=== PATIENT | male | born 1985 | race Caucasian/White ===

== ENCOUNTER 2018-12-19 12:25 | Inpatient (IN) | payer OTHER ==
[~2018-12-19] VITALS: Ht 170.2 cm; Wt 65.9 kg
[2018-12-19] MEDS ORDERED: IBUPROFEN 600 MG TABLET PO ONE (13:15)
[2018-12-19] MEDS: PERTUSS(ACELL),DIPH,TET VAC/PF 0.5 ML VIAL IM ONE ×2 (14:10→14:12)
[2018-12-19 14:57] LABS: APPEARANCE,URINE CLEAR (CLEAR); BILIRUBIN,URINE NEGATIVE (NEGATIVE); GLUCOSE, URINE (UA) NEGATIVE (NEGATIVE); KETONES,URINE NEGATIVE (NEGATIVE); LEUKOCYTE ESTERASE ,URINE NEGATIVE (NEGATIVE); NITRATE,URINE NEGATIVE (NEGATIVE); OCCULT BLOOD,URINE NEGATIVE (NEGATIVE); PROTEIN,URINE TRACE (NEGATIVE)
[2018-12-19 15:00] VITALS: BP 104/64
[2018-12-19 15:03] LABS: AMPHET/METH SCREEN,URINE NEGATIVE (NEGATIVE); BARBITURATE SCREEN, URINE NEGATIVE (NEGATIVE); BENZODIAZEPINES SCREEN,URINE NEGATIVE (NEGATIVE); CANNABINOID SCREEN,URINE NEGATIVE (NEGATIVE); COCAINE SCREEN,URINE NEGATIVE (NEGATIVE); METHADONE SCREEN, URINE NEGATIVE (NEGATIVE); OPIATE SCREEN,URINE NEGATIVE (NEGATIVE)
[2018-12-19 15:06] LABS: PHENCYCLIDINE SCREEN,URINE NEGATIVE (NEGATIVE)
[2018-12-19 20:10] VITALS: BP 106/70
[2018-12-19 23:30] VITALS: BP 110/72
[2018-12-20] MEDS ORDERED: 0.9% SODIUM CHLORIDE 10 ML SYRINGE IVP PRN (03:30)
[2018-12-20] MEDS ORDERED: OxyCODONE HCL/ACETAMINOPHEN 5-325 MG TABLET PO PRN ×2 (03:30)
[2018-12-20] MEDS ORDERED: ONDANSETRON HCL 4 MG/2 ML VIAL IVP PRN (03:30)
[2018-12-20 04:00] VITALS: BP 102/63
[2018-12-20 07:20] VITALS: BP 117/64
[2018-12-20] MEDS: DOCUSATE SODIUM 100 MG CAPSULE PO SCH ×2 (08:21→20:54)
[2018-12-20 11:41] VITALS: BP 104/65
[2018-12-20 15:58] VITALS: BP 114/75
[2018-12-20 20:20] VITALS: BP 123/70
[2018-12-20 23:16] VITALS: BP 93/57
[2018-12-21 04:00] VITALS: BP 114/74
[2018-12-21 07:35] VITALS: BP_SYST 111; BP_SYST 130; BP_DIAS 75; BP_DIAS 86
[2018-12-21] MEDS: DOCUSATE SODIUM 100 MG CAPSULE PO SCH (08:44)
[2018-12-21 11:02] VITALS: BP 112/73
[2018-12-21] MEDS ORDERED: ZOLPIDEM TARTRATE 5 MG TABLET PO PRN (12:00)
== END 2018-12-21 14:10 | DRG 558 ==
LOC: EMS 12:26 → 6S 13:51 → EMS 14:34
PROVIDERS: ADMIT Hospitalist; ATTEND Hospitalist
DX: M72.2 Plantar fascial fibromatosis (principal); F20.9 Schizophrenia, unspecified; G47.00 Insomnia, unspecified; R41.83 Borderline intellectual functioning
CPT/HCPCS: 90715; 97116; 97161; 97530

== ENCOUNTER 2018-12-28 18:44 | Inpatient (IN) | payer OTHER ==
[~2018-12-28] VITALS: Ht 170.2 cm; Wt 52.4 kg
[2018-12-28 20:00] VITALS: BP 124/75
[2018-12-28 20:04] LABS: AMPHET/METH SCREEN,URINE NEGATIVE (NEGATIVE); BARBITURATE SCREEN, URINE NEGATIVE (NEGATIVE); BENZODIAZEPINES SCREEN,URINE NEGATIVE (NEGATIVE); CANNABINOID SCREEN,URINE NEGATIVE (NEGATIVE); COCAINE SCREEN,URINE NEGATIVE (NEGATIVE); METHADONE SCREEN, URINE NEGATIVE (NEGATIVE); OPIATE SCREEN,URINE NEGATIVE (NEGATIVE)
[2018-12-28 20:05] LABS: PHENCYCLIDINE SCREEN,URINE NEGATIVE (NEGATIVE)
[2018-12-28] MEDS ORDERED: BISACODYL 10 MG RECTAL RECTAL SUPPOSITORY PR PRN (21:00)
[2018-12-28] MEDS ORDERED: ONDANSETRON HCL 4 MG/2 ML VIAL IVP PRN (21:00)
[2018-12-28] MEDS ORDERED: ACETAMINOPHEN 325 MG TABLET PO PRN (21:00)
[2018-12-28] MEDS ORDERED: IPRATROPIUM BROMIDE 0.5 MG/2.5 ML NEB SOLUTION NEB PRN (21:00)
[2018-12-28] MEDS ORDERED: ALBUTEROL SULFATE 2.5 MG/0.5 ML NEB SOLUTION NEB PRN (21:00)
[2018-12-28] MEDS ORDERED: ZOLPIDEM TARTRATE 5 MG TABLET PO PRN (21:00)
[2018-12-28] MEDS ORDERED: MAGNESIUM HYDROXIDE SUSPENSION 30 ML UDCUP PO PRN (21:00)
[2018-12-28] MEDS: DOCUSATE SODIUM 100 MG CAPSULE PO SCH (21:29)
[2018-12-29] MEDS: HEPARIN SODIUM,PORCINE 5,000 UNITS/ML VIAL SQ SCH ×4 (00:11→16:00)
[2018-12-29 00:18] VITALS: BP 108/69
[2018-12-29 04:52] VITALS: BP 111/50
[2018-12-29 07:25] VITALS: BP 115/70
[2018-12-29] MEDS: DOCUSATE SODIUM 100 MG CAPSULE PO SCH ×2 (08:24→20:46)
[2018-12-29 11:15] VITALS: BP 131/88
[2018-12-29 15:50] VITALS: BP 110/66
[2018-12-29 20:30] VITALS: BP 98/64
[2018-12-30] VITALS (7 sets, daily range): BP systolic 103–130; BP diastolic 55–82
[2018-12-30] MEDS: HEPARIN SODIUM,PORCINE 5,000 UNITS/ML VIAL SQ SCH ×3 (08:00→16:00)
[2018-12-30] MEDS: DOCUSATE SODIUM 100 MG CAPSULE PO SCH ×2 (08:30→20:01)
[2018-12-30] MEDS: SERTRALINE HCL 50 MG TABLET PO SCH (13:52)
[2018-12-30] MEDS: RisperiDONE 1 MG TABLET PO SCH (20:02)
[2018-12-31] MEDS: SERTRALINE HCL 50 MG TABLET PO SCH (07:58)
[2018-12-31] MEDS: DOCUSATE SODIUM 100 MG CAPSULE PO SCH ×2 (07:58→21:00)
[2018-12-31] MEDS: HEPARIN SODIUM,PORCINE 5,000 UNITS/ML VIAL SQ SCH ×4 (07:58→15:06)
[2018-12-31 08:08] VITALS: BP 107/73
[2018-12-31 11:30] VITALS: BP 110/70
[2018-12-31 15:49] VITALS: BP 121/75
[2018-12-31 20:00] VITALS: BP 106/69
[2018-12-31] MEDS: RisperiDONE 1 MG TABLET PO SCH (20:42)
[2019-01-01] VITALS (7 sets, daily range): BP systolic 105–124; BP diastolic 67–93
[2019-01-01] MEDS: HEPARIN SODIUM,PORCINE 5,000 UNITS/ML VIAL SQ SCH ×3 (08:00→15:19)
[2019-01-01] MEDS: SERTRALINE HCL 50 MG TABLET PO SCH (08:09)
[2019-01-01] MEDS: DOCUSATE SODIUM 100 MG CAPSULE PO SCH ×2 (08:09→19:57)
[2019-01-01] MEDS: RisperiDONE 1 MG TABLET PO SCH (19:57)
[2019-01-02 05:00] VITALS: BP 114/72
[2019-01-02 07:36] VITALS: BP 112/80
[2019-01-02] MEDS: HEPARIN SODIUM,PORCINE 5,000 UNITS/ML VIAL SQ SCH ×3 (08:00→16:00)
[2019-01-02] MEDS: DOCUSATE SODIUM 100 MG CAPSULE PO SCH ×2 (08:43→19:55)
[2019-01-02] MEDS: SERTRALINE HCL 50 MG TABLET PO SCH (08:43)
[2019-01-02 11:44] VITALS: BP 103/56
[2019-01-02 15:40] VITALS: BP 129/73
[2019-01-02] MEDS: RisperiDONE 1 MG TABLET PO SCH (19:57)
[2019-01-02 20:24] VITALS: BP 117/73
[2019-01-03] VITALS: BP 114/71
[2019-01-03 07:35] VITALS: BP 121/77
[2019-01-03] MEDS: HEPARIN SODIUM,PORCINE 5,000 UNITS/ML VIAL SQ SCH ×3 (08:00→16:00)
[2019-01-03] MEDS: DOCUSATE SODIUM 100 MG CAPSULE PO SCH ×2 (08:29→20:45)
[2019-01-03] MEDS: SERTRALINE HCL 50 MG TABLET PO SCH (08:29)
[2019-01-03 11:27] VITALS: BP 106/77
[2019-01-03 15:59] VITALS: BP 120/85
[2019-01-03 19:30] VITALS: BP 118/78
[2019-01-03] MEDS: RisperiDONE 1 MG TABLET PO SCH (20:45)
[2019-01-03 23:15] VITALS: BP 112/80
[2019-01-04 04:30] VITALS: BP 115/74
[2019-01-04 07:01] VITALS: BP 101/66
[2019-01-04] MEDS: HEPARIN SODIUM,PORCINE 5,000 UNITS/ML VIAL SQ SCH ×3 (08:00→15:07)
[2019-01-04] MEDS: DOCUSATE SODIUM 100 MG CAPSULE PO SCH (08:30)
[2019-01-04] MEDS: SERTRALINE HCL 50 MG TABLET PO SCH (08:30)
[2019-01-04] MEDS ORDERED: RISP1 PO (11:02)
[2019-01-04] MEDS ORDERED: SERT50TA12 PO (11:03)
[2019-01-04 11:08] VITALS: BP 107/62
[2019-01-04 15:08] VITALS: BP 102/66
== END 2019-01-04 17:04 | DRG 885 ==
LOC: EMS 18:46 → 6S 18:56
PROVIDERS: ADMIT Hospitalist; ATTEND Hospitalist
DX: F20.9 Schizophrenia, unspecified (principal); F41.9 Anxiety disorder, unspecified; R11.2 Nausea with vomiting, unspecified; Z79.899 Other long term (current) drug therapy
CPT/HCPCS: 87081; J1644

== ENCOUNTER 2019-01-11 12:43 | Inpatient (IN) | payer OTHER ==
[~2019-01-11] VITALS: Ht 170.2 cm; Wt 63.6 kg
[~2019-01-11 12:43] MED LIST: RISP1 PO; SERT50TA12 PO
[2019-01-11] MEDS ORDERED: ACETAMINOPHEN 325 MG TABLET PO PRN ×2 (13:00→14:15)
[2019-01-11] MEDS ORDERED: 0.9% SODIUM CHLORIDE 10 ML SYRINGE IVP PRN (13:00)
[2019-01-11] MEDS ORDERED: ONDANSETRON HCL 4 MG/2 ML VIAL IVP PRN (13:00)
[2019-01-11] MEDS ORDERED: NICOTINE 14 MG/24 HOUR PATCH TD PRN (14:15)
[2019-01-11] MEDS ORDERED: MAG HYDROX/AL HYDROX/SIMETH ES 30 ML SUSPENSION UDCUP PO PRN (14:15)
[2019-01-11] MEDS ORDERED: DOCUSATE SODIUM 100 MG CAPSULE PO PRN (14:15)
[2019-01-11] MEDS ORDERED: LOPERAMIDE HCL 2 MG CAPSULE PO PRN (14:15)
[2019-01-11] MEDS ORDERED: ONDANSETRON HCL 4 MG TABLET PO PRN (14:15)
[2019-01-11] MEDS ORDERED: IBUPROFEN 400 MG TABLET PO PRN (14:15)
[2019-01-11] MEDS ORDERED: MAGNESIUM HYDROXIDE SUSPENSION 30 ML UDCUP PO PRN (14:15)
[2019-01-11] MEDS ORDERED: PETROLATUM,WHITE 28 GM JELLY TP PRN (14:15)
[2019-01-11] MEDS ORDERED: ALBUTEROL SULFATE HFA 90 MCG/PUFF 8 GM INHALER IH PRN (14:15)
[2019-01-11] MEDS ORDERED: GuaiFENesin/D-METHORPHAN [SUGAR-FREE] 200-20MG/10 ML SYRUP UDCUP PO PRN (14:15)
[2019-01-11] MEDS ORDERED: CloNIDine HCL 0.1 MG TABLET PO PRN (14:15)
[2019-01-11 14:40] VITALS: BP 116/80
[2019-01-11 19:38] VITALS: BP 110/67
[2019-01-12] VITALS (7 sets, daily range): BP systolic 107–128; BP diastolic 63–82
[2019-01-12] MEDS: SERTRALINE HCL 50 MG TABLET PO SCH (15:02)
[2019-01-12] MEDS: RisperiDONE 2 MG TABLET PO SCH ×2 (15:02→20:22)
[2019-01-13 04:28] VITALS: BP 101/65
[2019-01-13 07:35] VITALS: BP 106/66
[2019-01-13] MEDS: SERTRALINE HCL 50 MG TABLET PO SCH (08:04)
[2019-01-13] MEDS: RisperiDONE 2 MG TABLET PO SCH ×2 (08:04→20:16)
[2019-01-13 11:33] VITALS: BP 105/69
[2019-01-13 15:24] VITALS: BP 105/75
[2019-01-13 20:14] VITALS: BP 119/69
[2019-01-14 00:15] VITALS: BP 133/85
[2019-01-14 04:18] VITALS: BP 117/85
[2019-01-14 07:54] VITALS: BP 124/77
[2019-01-14] MEDS: RisperiDONE 2 MG TABLET PO SCH ×2 (08:18→20:07)
[2019-01-14] MEDS: SERTRALINE HCL 50 MG TABLET PO SCH (08:19)
[2019-01-14 11:33] VITALS: BP 110/65
[2019-01-14 15:30] VITALS: BP 120/76
[2019-01-14] MEDS: MIRTAZAPINE 15 MG TABLET PO SCH (20:07)
[2019-01-15] VITALS (7 sets, daily range): BP systolic 105–139; BP diastolic 68–78
[2019-01-15] MEDS: RisperiDONE 2 MG TABLET PO SCH ×2 (08:14→20:06)
[2019-01-15] MEDS: MIRTAZAPINE 15 MG TABLET PO SCH (20:06)
[2019-01-16 04:00] VITALS: BP 102/61
[2019-01-16 07:59] VITALS: BP 115/71
[2019-01-16] MEDS: RisperiDONE 2 MG TABLET PO SCH (08:55)
[2019-01-16 11:51] VITALS: BP 114/67
[2019-01-16] MEDS ORDERED: MIRT15 PO (16:24)
== END 2019-01-16 18:30 | DRG 885 ==
LOC: EMS 12:44 → 6S 14:00
PROVIDERS: ADMIT Internal Medicine; ATTEND Internal Medicine
DX: F25.1 Schizoaffective disorder, depressive type (principal); W45.0XXA Nail entering through skin, initial encounter; Z79.899 Other long term (current) drug therapy; X58.XXXA Exposure to other specified factors, initial encounter; Y93.89 Activity, other specified; Y92.89 Other specified places as the place of occurrence of the external cause; Y99.8 Other external cause status

== ENCOUNTER 2019-09-15 12:17 | Inpatient (IN) | payer OTHER ==
[~2019-09-15] VITALS: Ht 167.6 cm; Wt 66.2 kg
[~2019-09-15 12:17] MED LIST changes: +MIRT-89 PO; -RISP1 PO; +RISP1TAB27 PO; -SERT50TA12 PO
[2019-09-15] MEDS ORDERED: DOCUSATE SODIUM 100 MG CAPSULE PO PRN (16:00)
[2019-09-15] MEDS ORDERED: BISACODYL 10 MG RECTAL RECTAL SUPPOSITORY PR PRN (16:00)
[2019-09-15] MEDS ORDERED: MAGNESIUM HYDROXIDE SUSPENSION 30 ML UDCUP PO PRN (16:00)
[2019-09-15] MEDS ORDERED: ALBUTEROL SULFATE 2.5 MG/0.5 ML NEB SOLUTION NEB PRN (16:00)
[2019-09-15] MEDS ORDERED: 0.9% SODIUM CHLORIDE 10 ML SYRINGE IVP PRN (16:00)
[2019-09-15] MEDS ORDERED: ONDANSETRON HCL 4 MG/2 ML VIAL IVP PRN (16:00)
[2019-09-15] MEDS ORDERED: ACETAMINOPHEN 325 MG TABLET PO PRN (16:00)
[2019-09-15] MEDS ORDERED: IPRATROPIUM BROMIDE 0.5 MG/2.5 ML NEB SOLUTION NEB PRN (16:00)
[2019-09-15] MEDS: MULTIVITAMINS, THERAPEUTIC TABLET PO SCH (16:08)
[2019-09-15] MEDS: THIAMINE 100 MG TABLET PO SCH (16:08)
[2019-09-15] MEDS: FOLIC ACID 1 MG TABLET PO SCH (16:11)
[2019-09-15] MEDS: PANTOPRAZOLE SODIUM 40 MG DR TABLET PO SCH (16:11)
[2019-09-15 17:00] VITALS: BP 108/59
[2019-09-15 20:18] VITALS: BP 115/71
[2019-09-15] MEDS: RisperiDONE 2 MG TABLET PO SCH (21:42)
[2019-09-15] MEDS: DIVALPROEX SODIUM 500 MG DR TABLET PO SCH (21:42)
[2019-09-16 05:47] VITALS: BP 120/64
[2019-09-16] MEDS: DIVALPROEX SODIUM 500 MG DR TABLET PO SCH ×2 (08:38→19:59)
[2019-09-16] MEDS: FOLIC ACID 1 MG TABLET PO SCH (08:38)
[2019-09-16] MEDS: THIAMINE 100 MG TABLET PO SCH (08:38)
[2019-09-16] MEDS: PANTOPRAZOLE SODIUM 40 MG DR TABLET PO SCH (08:38)
[2019-09-16] MEDS: MULTIVITAMINS, THERAPEUTIC TABLET PO SCH (08:38)
[2019-09-16] MEDS: RisperiDONE 2 MG TABLET PO SCH ×2 (08:40→19:59)
[2019-09-16 09:25] VITALS: BP 110/63
[2019-09-16 17:17] VITALS: BP 116/77
[2019-09-16 20:12] VITALS: BP 115/70
[2019-09-17 04:15] VITALS: BP 107/68
[2019-09-17] MEDS: PANTOPRAZOLE SODIUM 40 MG DR TABLET PO SCH (08:33)
[2019-09-17] MEDS: FOLIC ACID 1 MG TABLET PO SCH (08:33)
[2019-09-17] MEDS: MULTIVITAMINS, THERAPEUTIC TABLET PO SCH (08:33)
[2019-09-17] MEDS: THIAMINE 100 MG TABLET PO SCH (08:33)
[2019-09-17] MEDS: RisperiDONE 2 MG TABLET PO SCH ×2 (08:36→20:11)
[2019-09-17] MEDS: DIVALPROEX SODIUM 500 MG DR TABLET PO SCH ×2 (08:36→20:11)
[2019-09-17 08:44] VITALS: BP 120/75
[2019-09-17 15:43] VITALS: BP 107/71
[2019-09-17 19:00] VITALS: BP 113/76
[2019-09-17 22:59] LABS: AMPHET/METH SCREEN,URINE NEGATIVE (NEGATIVE); BARBITURATE SCREEN, URINE NEGATIVE (NEGATIVE); BENZODIAZEPINES SCREEN,URINE NEGATIVE (NEGATIVE); CANNABINOID SCREEN,URINE NEGATIVE (NEGATIVE); COCAINE SCREEN,URINE NEGATIVE (NEGATIVE); METHADONE SCREEN, URINE NEGATIVE (NEGATIVE); OPIATE SCREEN,URINE NEGATIVE (NEGATIVE)
[2019-09-17 23:00] LABS: PHENCYCLIDINE SCREEN,URINE NEGATIVE (NEGATIVE)
[2019-09-18 04:35] VITALS: BP 123/79
[2019-09-18 08:14] VITALS: BP 126/83
[2019-09-18] MEDS: DIVALPROEX SODIUM 500 MG DR TABLET PO SCH (08:37)
[2019-09-18] MEDS: RisperiDONE 2 MG TABLET PO SCH (08:37)
[2019-09-18] MEDS: PANTOPRAZOLE SODIUM 40 MG DR TABLET PO SCH (08:37)
[2019-09-18] MEDS: THIAMINE 100 MG TABLET PO SCH (08:37)
[2019-09-18] MEDS: MULTIVITAMINS, THERAPEUTIC TABLET PO SCH (08:37)
[2019-09-18] MEDS: FOLIC ACID 1 MG TABLET PO SCH (08:39)
[2019-09-18] MEDS ORDERED: MULT-1203 PO (14:26)
[2019-09-18] MEDS ORDERED: FOLI-130 PO (14:26)
[2019-09-18] MEDS ORDERED: THIA100T80 PO (14:26)
[2019-09-18] MEDS ORDERED: ACET-3207 PO (14:27)
[2019-09-18] MEDS ORDERED: RISP2TAB23 PO (14:28)
[2019-09-18] MEDS ORDERED: DIVA-112 PO (14:28)
== END 2019-09-18 17:30 | DRG 881 ==
LOC: EMS 12:18 → 6S 14:17
PROVIDERS: ADMIT Internal Medicine; ATTEND Internal Medicine
DX: F32.9 Major depressive disorder, single episode, unspecified (principal); R45.851 Suicidal ideations; F20.9 Schizophrenia, unspecified; Z02.89 Encounter for other administrative examinations; Z79.899 Other long term (current) drug therapy